=== PATIENT | male | born 2000 | race Caucasian/White ===

== ENCOUNTER 2025-10-14 20:00 | Emergency (ER) | payer SELFPAY ==
[~2025-10-14] VITALS: Ht 180.3 cm; Wt 81.2 kg
[2025-10-14 20:49] LABS: PLATELET COUNT (AUTO) 192 K/uL (150-450); RED BLOOD CELL COUNT(AUTO) 5.75 MIL/uL (4.5-6.0); RED CELL DISTRIBUTION WIDTH 12.6 % (11.5-15.0); WHITE BLOOD COUNT (AUTO) 9.7 K/uL (4.3-11.0)
[2025-10-14 20:55] LABS: CALCIUM, SERUM 9.1 mg/dL (8.5-10.1); CREATININE 1.0 mg/dL (0.6-1.3); SODIUM SERUM 138 mmol/L (136-145); UREA NITROGEN, BLOOD 10 mg/dL (7-18)
[2025-10-14 21:01] LABS: ASPARTATE AMINOTRANSFERASE 26 U/L (15-37); TOTAL PROTEIN, SERUM 8.0 g/dL (6.4-8.2)
[2025-10-14 21:03] LABS: ALCOHOL, BLOOD < 3 mg/dL (0-10)
[2025-10-14 21:22] VITALS: BP 145/70; TEMP 98.5; O2SAT 98
== END 2025-10-14 21:23 | disposition home or self-care (01) ==
LOC: ER 20:04
DX: T39.1X1A Poisoning by 4-Aminophenol derivatives, accidental (unintentional), initial encounter (principal); Y92.89 Other specified places as the place of occurrence of the external cause
CPT/HCPCS: 36415; 80048-TC; 80076-TC; 85025-TC; G0480